=== PATIENT | female | born 1930 | race Caucasian/White ===

== ENCOUNTER 2018-09-08 03:20 | Inpatient (IN) ==
[2018-09-08] MEDS ORDERED: Naloxone 0.4 MG/ML INJ IVP PRN (09:13)
[2018-09-08] MEDS ORDERED: *HR* OxyCODONE Immed Rel 5 MG TABLET PO PRN (09:13)
[2018-09-08] MEDS ORDERED: Acetaminophen 325 MG TABLET PO PRN (09:13)
[2018-09-08] MEDS ORDERED: *HR* HYDROcodone/Acet 5/325 mg TABLET PO PRN (09:13)
[2018-09-08] MEDS ORDERED: Ipratropium/Albuterol Neb 3 ML IH PRN (09:16)
--- NOTE | 2018-09-08 09:44 | Internal Med History&Physical ---
Date of Encounter: 09/08/18 Time of Encounter: 08:00 Internal Medicine - H&P: HPI Chief complaint: Shortness of breath Admitted From: Emergency Dept History of present illness: Ms. Palumbo is a 88 year old female with history of colon cancer status post partial hemicolectomy, follicular lymphoma, hypothyroidism, presented to the outside hospital ED with 2 day history of shows of breath. Associated with orthopnea and progressive leg swelling. Denies any chest pain, nausea/vomiting , diaphoresis, or epigastric pain. Has had chronic diarrhea post partial hemicolectomy. No fever/chills, cough, sputum production, or sick contacts. No abdominal pain or dysuria. Does not have any history of CAD or cardiomyopathy. Nonsmoker but has extensive secondary exposure to tobacco. At the outside hospital ED she was afebrile and hemodynamically stable. Saturating well on 2 L of oxygen. Initial workup revealed hypoxia with PaO2 of 57 and elevated BNP of 35,000. No leukocytosis, negative troponin, EKG showing normal sinus rhythm. I do not have a report of the chest x-ray from [facility]. She was given 1 dose of IV Lasix, Solu-Medrol, DuoNeb, and transferred to [facility] for further management. Past Med Surg Social Fam HX - Past Medical History Medical history: cancer, thyroid disease Psychiatric history: no psych history - Past Surgical History Surgical History: colectomy - Social History Smoking Status: 2nd Hand Smoke Exposure Smokeless Tobacco Status: No Alcohol use: rarely Drug use: none - Family History Mother History Unknown: Yes Living Status: Father History Unknown: Yes Living Status: Internal Medicine - H&P: Meds Acetaminophen [Tylenol] 500 mg PO Q6HR PRN 12/31/17 [History] Calcium Citrate/Vitamin D3 [Calcium Cit 315-Vit D3 250 Tab] 1 each PO DAILY 12/17 [History] Ibuprofen [Advil] 200 mg PO Q8HR PRN 12/31/17 [History] Iron PO DAILY 12/31/17 [History] Levothyroxine [Synthroid] 88 mcg PO 0630 12/31/17 [History] Loperamide [Imodium] 4 mg PO TID #120 capsule 12/31/17 [Rx] Metoprolol [Lopressor] 50 mg PO BID 12/31/17 [History] Multivitamin [One Daily Essential] 1 each PO DAILY 12/31/17 [History] Prolia (For Outpatient Infusion) SQ 12/31/17 [History] Diphenoxylate/Atropine [Lomotil 2.5 mg/0.025 mg] 1 tab PO 03/11/18 [History] 3 Allergy/AdvReac Type Severity Reaction Status Date / Time Penicillins [PCN] AdvReac Rash Verified 03/11/18 13:08 All Systems PM: A 10-system review of systems was performed and is negative for pertinent findings except as documented above in the HPI. - Constitutional Vitals: Temp Pulse Resp BP Pulse Ox 98.0 F 80 18 152/84 95 09/08/18 08:12 09/08/18 08:12 09/08/18 08:12 09/08/18 08:12 09/08/18 08:12 Exam: General: Alert and oriented, not in acute distress. HEENT:EOM, pupils equal, round and reactive. Cardiovascular:Normal S1 & S2, No JVD. Pulse regular. Ejection systolic murmur over aortic area Lungs: Bibasilar Rales, no rhonchi/wheezes. Minimal pitting edema on both ankles Abdomen:Soft, non-tender, no rigidity. Extremities:No deformity or swelling Neurological:Normal cognition and motor skills. Non-focal Skin:Normal color, no rash, no lesions. Pulses:Carotid and radial pulses normal +2. Rest of the physical exam is non contributory - Assessment and plan (1) Acute decompensated heart failure Current Visit: Yes Status: Acute Assessment and plan: Presented with progressive dyspnea, orthopnea, and leg swelling in the setting of elevated BNP > 35,000 Symptomatically improvement after IV Lasix No history of CAD or cardiomyopathy, no symptoms of angina Troponin negative, EKG normal sinus rhythm. Trend troponin to rule out ACS Continue IV lasix 40mg BID Strict I's and O's, fluid restrict 1.5 L a day Echocardiogram (2) Hypothyroidism Current Visit: No Status: Chronic Assessment and plan: Resume home meds when reconciled Qualifiers: Hypothyroidism type: unspecified Qualified Code(s): E03.9 - Hypothyroidism , unspecified (3) History of colon cancer, stage II Current Visit: No Status: Chronic Assessment and plan: Status post partial hemicolectomy, complicated by chronic diarrhea continue home meds when reconciled (4) Follicular lymphoma Current Visit: No Status: Chronic Assessment and plan: Mass in the mesentery status post resection with reanastomosis Follow-up outpatient Qualifiers: Follicular lymphoma type: unspecified follicular type Lymphoma site: intra- abdominal nodes Qualified Code(s): C82.93 - Follicular lymphoma, unspecified, intra-abdominal lymph nodes (5) DVT prophylaxis Current Visit: Yes Status: Acute Assessment and plan: Subcutaneous heparin - Time Spent With Patient Total time spent is greater than 50% in coordination of care (as documented) at patient's floor/unit and/or counseling patient:
[2018-09-08] MEDS: *HR* Heparin 5,000 UNIT/ML VIAL SQ SCH (17:15)
[2018-09-08] MEDS: Furosemide 40 MG/4 ML VIAL IVP SCH (19:35)
[2018-09-08] MEDS: Melatonin 3 MG TABLET PO PRN (22:36)
[2018-09-08 23:41] LABS: Albumin 3.6 g/dL (3.5-5.7); Albumin/Globulin Ratio 1.1 (1.1-2.2); Bilirubin,Total 0.5 mg/dL (0.3-1.0); Calcium 8.5 mg/dL (8.6-10.3); Globulin 3.3 g/dL (2.4-3.5); Potassium 3.9 mEq/L (3.5-5.1); Total Protein 6.9 g/dL (6.4-8.9)
[2018-09-08 23:45] LABS: Basophils % 0.1 %; Hematocrit 42.5 % (35.3-44.9); Hemoglobin 13.7 g/dL (11.5-15.4); Immature Granulocytes % 1.2 % (0-4); Lymphocytes # 1.3 K/mcL (0.6-4.6); Mean Corpuscular HGB Conc 32.2 g/dL (31.6-35.5); Mean Corpuscular Hemoglobin 31.6 pg (28.0-33.3); Mean Corpuscular Volume 97.9 fL (83.0-100.0); Mean Platelet Volume 9.8 fL (9.4-12.4); Monocytes # 0.7 K/mcL (0.0-1.3); Monocytes % 8.2 %; Neutrophils # 6.6 K/mcL (1.6-8.9); Platelet Count 237 K/mcL (140-400); Red Blood Count 4.34 M/mcL (3.82-4.97); Red Cell Distribution Width 14.9 % (11.5-14.5); Segmented Neutrophils % 75.5 %
[2018-09-09 05:16] LABS: Hematocrit 40.1 % (35.3-44.9); Hemoglobin 13.2 g/dL (11.5-15.4); Mean Corpuscular HGB Conc 32.9 g/dL (31.6-35.5); Mean Corpuscular Hemoglobin 31.8 pg (28.0-33.3); Mean Corpuscular Volume 96.6 fL (83.0-100.0); Mean Platelet Volume 9.6 fL (9.4-12.4); Platelet Count 219 K/mcL (140-400); Red Blood Count 4.15 M/mcL (3.82-4.97); Red Cell Distribution Width 15.1 % (11.5-14.5)
[2018-09-09 05:38] LABS: Calcium 8.2 mg/dL (8.6-10.3); Magnesium 1.6 mg/dL (1.6-2.6); Potassium 3.7 mEq/L (3.5-5.1)
[2018-09-09] MEDS: *HR* Heparin 5,000 UNIT/ML VIAL SQ SCH ×2 (05:43→18:13)
[2018-09-09] MEDS: Multivit/Ca/Min/Fe/FA 1 TAB TABLET PO SCH (08:24)
[2018-09-09] MEDS: Furosemide 40 MG/4 ML VIAL IVP SCH (10:28)
[2018-09-09 10:59] LABS: Albumin 3.3 g/dL (3.5-5.7); Bilirubin,Direct 0.1 mg/dL (0.0-0.2); Bilirubin,Indirect 0.5 mg/dL (0.0-1.2); Bilirubin,Total 0.6 mg/dL (0.3-1.0); Globulin 3.4 g/dL (2.4-3.5); Total Protein 6.7 g/dL (6.4-8.9)
--- NOTE | 2018-09-09 11:40 | Internal Med Progress Note ---
Hospitalist Progress Note - Encounter Date of Encounter: 09/09/18 Time of Encounter: 11:40 - Subjective Interval History: Pt states she is breathing better. She reports voiding ok. She denies chest pain. She denies palpitations. She denies fever, chills, N/V or abdominal pain. SHe does report chronic diarrhea. - Exam Vitals: Temp Pulse Resp BP Pulse Ox 97.8 F 69 18 138/75 100 09/09/18 11:03 09/09/18 11:03 09/09/18 11:03 09/09/18 11:03 09/09/18 11:03 Exam: Exam: General: Alert and oriented, not in acute distress. HEENT:EOM, pupils equal, round and reactive. Cardiovascular:Normal S1 & S2, No JVD. Pulse regular. Ejection systolic murmur over aortic area Lungs: Bibasilar Rales, no rhonchi/wheezes. Minimal pitting edema on both ankles Abdomen:Soft, non-tender, no rigidity. Extremities:No deformity or swelling Neurological:Normal cognition and motor skills. Non-focal Skin:Normal color, no rash, no lesions. Pulses:Carotid and radial pulses normal +2. Rest of the physical exam is non contributory - Assessment and Plan (1) Acute decompensated heart failure Current Visit: Yes Status: Acute Assessment and Plan: Presented with progressive dyspnea, orthopnea, and leg swelling in the setting of elevated BNP > 35,000 Symptomatically improving on IV Lasix. Will consider switching to PO Lasix at discharge. No history of CAD or cardiomyopathy, no symptoms of angina Troponin negative, EKG normal sinus rhythm. Trend troponin to rule out ACS. IV lasix 40mg BID Strict I's and O's, fluid restrict 1.5 L a day Echo abnormal and results below. Cardiology consulted to see and awaiting their note. Echocardiogram EV/EV echocardiogram Impressions: LVEF 30-35%. Normal LV chamber size. Mild concentric left ventricular hypertrophy. Mild left ventricular diastolic dysfunction. Severe global left ventricular systolic dysfunction. Atypical septal motion consistent with bundle branch block. Normal right ventricular structure and function. Moderate aortic regurgitation. Mild mitral regurgitation. Mild tricuspid regurgitation. No pulmonary hypertension. Pleural effusion. (2) Follicular lymphoma Current Visit: No Status: Chronic Assessment and Plan: Mass in the mesentery status post resection with re-anastomosis Follow-up outpatient (3) History of colon cancer, stage II Current Visit: No Status: Chronic Assessment and Plan: Status post partial hemicolectomy, complicated by chronic diarrhea continue home meds when reconciled (4) Hypothyroidism Current Visit: No Status: Chronic Assessment and Plan: Levothyroxine DVT Prophylaxis: Heparin - Summary of Assessment and Plan Summary of Assessment and Plan: Ms. Palumbo is a 88 year old female with history of colon cancer status post partial hemicolectomy, follicular lymphoma, hypothyroidism, presented to the outside hospital ED with 2 day history of shows of breath. Associated with orthopnea and progressive leg swelling. Denies any chest pain, nausea/vomiting , diaphoresis, or epigastric pain. Has had chronic diarrhea post partial hemicolectomy. No fever/chills, cough, sputum production, or sick contacts. No abdominal pain or dysuria. Does not have any history of CAD or cardiomyopathy. Nonsmoker but has extensive secondary exposure to tobacco. At the outside hospital ED she was afebrile and hemodynamically stable. Saturating well on 2 L of oxygen. Initial workup revealed hypoxia with PaO2 of 57 and elevated BNP of 35,000. No leukocytosis, negative troponin, EKG showing normal sinus rhythm. I do not have a report of the chest x-ray from [facility]. She was given 1 dose of IV Lasix, Solu-Medrol, DuoNeb, and transferred to [facility] for further management. - Time Spent with Patient Total time spent is greater than 50% in coordination of care (as documented) at patient's floor/unit and/or counseling patient: less than 15 minutes Plan of Care Discussed with: patient Internal Medicine: Result - Labs CBC & Chem 7: 09/09/18 04:58 09/09/18 04:58 Labs: Short CBC 09/08/18 09/09/18 Range/Units 23:06 04:58 WBC 8.7 8.7 (4.3-11.1) K/mcL Hgb 13.7 13.2 (11.5-15.4) g/dL Hct 42.5 40.1 (35.3-44.9) % Plt Count 237 219 (140-400) K/mcL Neutrophils # 6.6 (1.6-8.9) K/mcL BMP 09/08/18 09/09/18 23:06 04:58 Sodium 139 142 Potassium 3.9 3.7 Chloride 104 106 Carbon Dioxide 24 26 BUN 34 H 33 H Creatinine 1.16 1.09 Glucose 118 H 105 Calcium 8.5 L 8.2 L Liver Function 09/08/18 09/09/18 Range/Units 23:06 04:58 Total Bilirubin 0.5 0.6 (0.3-1.0) mg/dL Direct Bilirubin 0.1 (0.0-0.2) mg/dL AST 48 H 42 H (13-39) Units/L ALT 74 H 66 H (7-52) Units/L Alkaline Phosphatase 235 H 199 H (34-104) Units/L Albumin 3.6 3.3 L (3.5-5.7) g/dL - Impressions Impressions Echocardiogram 09/08/18 09:16 Impressions: LVEF 30-35%. Normal LV chamber size. Mild concentric left ventricular hypertrophy. Mild left ventricular diastolic dysfunction. Severe global left ventricular systolic dysfunction. Atypical septal motion consistent with bundle branch block. Normal right ventricular structure and function. Moderate aortic regurgitation. Mild mitral regurgitation. Mild tricuspid regurgitation. No pulmonary hypertension. Pleural effusion. Hip X-Ray 09/08/18 10:46 IMPRESSION: 1. Anatomic alignment and satisfactory appearance status post ORIF of the left femoral neck. 2. No bony or joint abnormalities seen in the left hip. 3. Degenerative changes in the lower lumbar spine. D/ / 09/08/2018 16:09:24 Mati Leigh MD / [email or web address] Interpreting Provider: Mati Leigh MD Consult Discharge Plan - Plan Referrals: Nicki Driscoll [Primary Care Provider] - (2) Follicular lymphoma Qualifiers: Follicular lymphoma type: unspecified follicular type Lymphoma site: intra- abdominal nodes Qualified Code(s): C82.93 - Follicular lymphoma, unspecified, intra-abdominal lymph nodes (4) Hypothyroidism Qualifiers: Hypothyroidism type: unspecified Qualified Code(s): E03.9 - Hypothyroidism, unspecified
--- NOTE | 2018-09-09 12:42 | Cardiology Consult Note ---
Date of Encounter: 09/09/18 Time of Encounter: 09:30 Assessment and Plan (1) Systolic CHF with reduced left ventricular function, NYHA class 3 Current Visit: Yes Status: Acute Per cardiology: -Admitted with sudden onset of shortness of breath. -CHest x-ray with pulmonary edema. -BNP 1100s. -Was started on IV lasix, currently net negative 1140ml. -Euvolemic on exam, lung sounds clear. -Strict i/os, fluid restriction, daily weight. -Will switch lasix to oral. -CHF education reviewed at length with patient. (2) Cardiomyopathy Current Visit: Yes Status: Acute Per cardiology: -Apparent new onset of systolic heart failure, TTE with LVEF 30-35%, global hypokinesis, midl concentric LVH, moderate AR, mild MR, mild TR. -Discussed potential LHC with patient for ischemic evaluation, however patient declines at this time. Patient prefers medical management. -On lopressor. -Will switch lopressor to toprol. -Will start gurpreet inhibitor. -Switching lasix to oral. -Will repeat TTE in 3 months after medical therapy. -CHF education reviewed at length with patient. Qualifiers: Cardiomyopathy type: unspecified Qualified Code(s): I42.9 - Cardiomyopathy , unspecified Discussion w patient/family: The assessment and plan as outlined above was discussed with the patient who expressed understanding and agreement. All questions were answered. Thank you for involving us in the care of your patient. Please call with any questions. Discussed and reviewed with . History of Present Illness Consult date: 09/08/18 Requesting physician: Mathew Ochoa Consult reason: reduced LVEF Chief complaint: shortness of breath History of present illness: Ms. Palumbo is a 88 year old female with a relevant past medical history of colon cancer, thyroid disease who presented to [facility] with complaints of difficulty in breathing. Patient denies chest pain. Patient denies weight gain, or edema. Today, patient states her breathing is back to her baseline. Past Med Surg Social Fam HX - Past Medical History Attestation: Yes The following information was validated with the patient. Source: patient, old records reviewed Medical history: cancer, thyroid disease Psychiatric history: no psych history - Past Surgical History Surgical History: colectomy - Social History Smoking Status: 2nd Hand Smoke Exposure Smokeless Tobacco Status: No Alcohol use: rarely Drug use: none - Family History Mother History Unknown: Yes Living Status: Father History Unknown: Yes Living Status: Medications and Allergies Calcium Citrate/Vitamin D3 [Calcium Cit 315-Vit D3 250 Tab] 1 each PO DAILY 12/17 [History] Ibuprofen [Advil] 200 mg PO Q8HR PRN 12/31/17 [History] Iron 65 mg PO DAILY 12/31/17 [History] Levothyroxine [Synthroid] 88 mcg PO 0630 12/31/17 [History] Loperamide [Imodium] 4 mg PO TID #120 capsule 12/31/17 [Rx] Metoprolol [Lopressor] 50 mg PO BID 12/31/17 [History] Multivitamin [One Daily Essential] 1 each PO DAILY 12/31/17 [History] Diphenoxylate/Atropine [Lomotil 2.5 mg/0.025 mg] 1 - 2 tab PO Q6HR PRN 03/11/18 [History] Acetaminophen/Aspirin/Caffeine [Excedrin EX] 1 each PO Q6HR PRN 09/08/18 [ History] Tramadol HCl [Ultram] 100 mg PO QID PRN 09/08/18 [History] 3 Allergy/AdvReac Type Severity Reaction Status Date / Time Penicillins [PCN] AdvReac Rash Verified 03/11/18 13:08 All Systems Review: The remainder of the systems were reviewed and are negative - Cardiovascular Cardiovascular: as per HPI, dyspnea at rest, dyspnea on exertion Physical Examination Vital Signs, Last 4 Hours Temp Pulse Resp BP Pulse Ox 09/09/18 11:03 97.8 F 69 18 138/75 100 General: Conversant, No Apparent Distress HEENT: Atraumatic, Normocephaly, Mucus Membranes Moist Neck: No JVD, Normal carotid pulses Cardiac: Reg Rate and Rhythm, Normal S1 and S2, No Murmur Lungs: Normal Breath Sounds, No Wheeze, Rales, Rhonchi Neuro: Alert and responsive, No focal deficits noted Abdomen: Soft, Non-Tender Skin: No rashes noted on visualized skin Musculoskeletal: No Chest Wall Tenderness Extremities: No Clubbing, No Cyanosis, No Edema, Normal Pulses Results 09/09/18 04:58 09/09/18 04:58 Lab Results Impressions Echocardiogram 09/08/18 09:16 Impressions: LVEF 30-35%. Normal LV chamber size. Mild concentric left ventricular hypertrophy. Mild left ventricular diastolic dysfunction. Severe global left ventricular systolic dysfunction. Atypical septal motion consistent with bundle branch block. Normal right ventricular structure and function. Moderate aortic regurgitation. Mild mitral regurgitation. Mild tricuspid regurgitation. No pulmonary hypertension. Pleural effusion. Hip X-Ray 09/08/18 10:46 IMPRESSION: 1. Anatomic alignment and satisfactory appearance status post ORIF of the left femoral neck. 2. No bony or joint abnormalities seen in the left hip. 3. Degenerative changes in the lower lumbar spine. D/ / 09/08/2018 16:09:24 Mati Leigh MD / [email or web address] Interpreting Provider: Mati Leigh MD Active Medications Acetaminophen (Tylenol) 650 mg PO Q6HR PRN PRN Reason: Mild Pain/Fever Stop: 03/10/19 09:14 Last Admin: 09/09/18 08:23 Dose: 650 mg Hydrocodone Bitart/Acetaminophen ([place] 5-325 Mg) 1 tab PO Q6HR PRN PRN Reason: Moderate Pain Stop: 03/10/19 09:14 Albuterol/Ipratropium (Duoneb) 3 ml IH G8AATAN PRN PRN Reason: Shortness Of Breath/Wheezing Stop: 03/10/19 09:17 Calcium Carbonate (Tums) 500 mg PO DAILY [facility] Stop: 03/11/19 09:01 Last Admin: 09/09/18 08:23 Dose: 500 mg Ferrous Sulfate (Ferrous Sulfate) 325 mg PO DAILY [facility] Stop: 03/11/19 09:01 Last Admin: 09/09/18 08:23 Dose: 325 mg Furosemide (Lasix) 20 mg PO BIDDIURETIC [facility] Stop: 03/11/19 17:01 Heparin Sodium (Porcine) (Heparin) 5,000 unit SQ Q12HCO [facility] Stop: 03/10/19 18:01 Last Admin: 09/09/18 05:43 Dose: 5,000 unit Levothyroxine Sodium (Synthroid) 88 mcg PO 0630 [facility] Stop: 03/11/19 06:31 Last Admin: 09/09/18 05:43 Dose: 88 mcg Lisinopril (Zestril) 2.5 mg PO DAILY [facility] PRN Reason: Protocol Stop: 03/12/19 09:01 Melatonin (Melatonin) 3 mg PO HS PRN PRN Reason: Insomnia Stop: 03/10/19 22:11 Last Admin: 09/08/18 22:36 Dose: 3 mg Metoprolol Succinate (Toprol Xl) 50 mg PO DAILY [facility] Stop: 03/12/19 09:01 Metoprolol Tartrate (Lopressor) 50 mg PO BID [facility] Stop: 09/09/18 23:45 Last Admin: 09/09/18 08:24 Dose: 50 mg Multivitamins/Calcium (Thera M Plus) 1 tab PO DAILY [facility] Stop: 03/11/19 09:01 Last Admin: 09/09/18 08:24 Dose: 1 tab Naloxone HCl (Narcan) 0.4 mg IVP Q2MIN PRN PRN Reason: SEE COMMENTS Stop: 03/10/19 09:14 Oxycodone HCl (Roxicodone) 10 mg PO Q6HR PRN PRN Reason: Severe Pain Stop: 03/10/19 09:14 Laboratory Tests 09/08/18 09/09/18 09/09/18 09:39 04:58 04:58 Hgb 13.2 Creatinine 1.09 Troponin I < 0.03 B-Natriuretic Peptide 09/09/18 04:58 Hgb Creatinine Troponin I B-Natriuretic Peptide 1120 H - Imaging and Cardiology Chest Xray: report reviewed Echo: report reviewed - EKG Interpretation EKG results cardiology: personally reviewed (No ECG [facility] noted.), other ( Telemetry reviewed with average HR previous 12 hours noted to be 89, SR. PVCs and PACs noted.) Consult Discharge Plan - Plan Referrals: Nicki Driscoll [Primary Care Provider] -
[2018-09-09 17:31] LABS: Hepatitis B Surface Antigen Nonreactive (Nonreactive)
[2018-09-09] MEDS: Aspirin Enteric Coated 81 MG Tablet PO SCH (18:13)
[2018-09-09] MEDS: Furosemide 20 MG TABLET PO SCH (18:13)
[2018-09-09] MEDS: Melatonin 3 MG TABLET PO PRN (20:02)
[2018-09-10 01:09] LABS: Hepatitis A Antibody IgM Nonreactive (Nonreactive); Hepatitis B Core IgM Nonreactive (Nonreactive); Hepatitis C Virus Antibody Nonreactive (Nonreactive)
[2018-09-10 04:40] LABS: Hematocrit 44.8 % (35.3-44.9); Hemoglobin 14.4 g/dL (11.5-15.4); Mean Corpuscular HGB Conc 32.1 g/dL (31.6-35.5); Mean Corpuscular Hemoglobin 31.5 pg (28.0-33.3); Platelet Count 244 K/mcL (140-400); Red Blood Count 4.57 M/mcL (3.82-4.97); Red Cell Distribution Width 14.8 % (11.5-14.5); Segmented Neutrophils % 71.4 %
[2018-09-10 04:41] LABS: Basophils % 0.2 %; Eosinophils % 0.1 %; Immature Granulocytes % 0.2 % (0-4); Lymphocytes # 1.7 K/mcL (0.6-4.6); Lymphocytes % 20.1 %; Monocytes # 0.7 K/mcL (0.0-1.3)
[2018-09-10 04:59] LABS: Albumin 3.6 g/dL (3.5-5.7); Albumin/Globulin Ratio 1.1 (1.1-2.2); Bilirubin,Total 0.6 mg/dL (0.3-1.0); Calcium 8.7 mg/dL (8.6-10.3); Globulin 3.4 g/dL (2.4-3.5); Potassium 3.1 mEq/L (3.5-5.1)
[2018-09-10] MEDS: *HR* Heparin 5,000 UNIT/ML VIAL SQ SCH (06:00)
[2018-09-10] MEDS: Furosemide 20 MG TABLET PO SCH (08:57)
[2018-09-10] MEDS: Multivit/Ca/Min/Fe/FA 1 TAB TABLET PO SCH (08:57)
[2018-09-10] MEDS: Aspirin Enteric Coated 81 MG Tablet PO SCH (08:57)
[2018-09-10] MEDS ORDERED: Metoprolol XL (24 HR) Succ 50 MG TAB.ER.24H PO SCH (09:00)
[2018-09-10 12:09] VITALS: BP 128/78
--- NOTE | 2018-09-10 13:15 | Discharge Summary ---
- NOTES TO OUTPATIENT PROVIDER Notes to Outpatient Provider: To have repeat TTE in 3 months. Orders not resulted at time of discharge: Pending orders 09/09/18 14:18 ECG 12 lead ECG [ECG] Routine 09/11/18 04:00 CBC [Complete Blood Count] [HEME] AM 0400 CMP [Comprehensive Metabolic Panel] AM 0400 09/12/18 04:00 CBC [Complete Blood Count] [HEME] AM 0400 CMP [Comprehensive Metabolic Panel] AM 0400 Date of Encounter: 09/10/18 Time of Encounter: 12:13 - Discharge Diagnosis (1) Acute decompensated heart failure Priority: Primary Status: Acute (2) Follicular lymphoma Priority: Secondary Status: Chronic Qualifiers: Follicular lymphoma type: unspecified follicular type Lymphoma site: intra- abdominal nodes Qualified Code(s): C82.93 - Follicular lymphoma, unspecified, intra-abdominal lymph nodes (3) Hypothyroidism Priority: Secondary Status: Chronic Qualifiers: Hypothyroidism type: unspecified Qualified Code(s): E03.9 - Hypothyroidism , unspecified (4) History of colon cancer, stage II Priority: Secondary Status: Chronic Hospital course: Ms. Palumbo is a 88 year old female with past medical history of colon cancer status post hemicolectomy, follicular lymphoma, hypothyroidism came with progressive shortness of breath. BNP was 1100s and chest x-ray showed pulmonary edema. Patient received treatment for acute decompensated heart failure with IV Lasix. Echo showed EF of 30-35, global hypokinesis, mild LVH, mild diastolic dysfunction, atypical septal wall motion consistent with bundle branch block, moderate aortic regurgitation, mild MR and TR. Cardiology was consulted and option for LX she was discussed however patient declined at this time. Patient was started on medical management for systolic CHF. Patient appears euvolemic and her breathing improved. Patient would be discharged on oral Lasix, lisinopril and metoprolol succinate. Patient would follow up with PCP closely. Would need a repeat echo in 3 months to evaluate for ICD. Discharge discussed with: patient, family, nurse - Time Spent with Patient Total time spent providing and/or coordinating discharge services: Greater than 30 minutes (40 mins) - Discharge Medications Prescriptions: Aspirin Enteric Coated [Aspirin EC] 81 mg PO DAILY 30 Days #30 tablet. Furosemide [Lasix] 20 mg PO BIDDIURETIC 30 Days #60 tablet Lisinopril [Zestril] 2.5 mg PO DAILY 30 Days #30 tablet Metoprolol XL (24 HR) Succ [Toprol Xl] 50 mg PO DAILY 30 Days #30 tab.er.24h Home Medications: Calcium Citrate/Vitamin D3 [Calcium Cit 315-Vit D3 250 Tab] 1 each PO DAILY 12/17 [History] Ferrous Sulfate [Iron] 325 mg PO DAILY 12/31/17 [History] Ibuprofen [Advil] 200 mg PO Q8HR PRN 12/31/17 [History] Levothyroxine [Synthroid] 88 mcg PO 0630 12/31/17 [History] Loperamide [Imodium] 4 mg PO TID #120 capsule 12/31/17 [Rx] Multivitamin [One Daily Essential] 1 each PO DAILY 12/31/17 [History] Diphenoxylate/Atropine [Lomotil 2.5 mg/0.025 mg] 1 - 2 tab PO Q6HR PRN 03/11/18 [History] Acetaminophen/Aspirin/Caffeine [Excedrin EX] 1 each PO Q6HR PRN 09/08/18 [ History] Tramadol HCl [Ultram] 100 mg PO QID PRN 09/08/18 [History] Aspirin Enteric Coated [Aspirin EC] 81 mg PO DAILY 30 Days #30 tablet.dr [Rx] Furosemide [Lasix] 20 mg PO BIDDIURETIC 30 Days #60 tablet 09/10/18 [Rx] Lisinopril [Zestril] 2.5 mg PO DAILY 30 Days #30 tablet 09/10/18 [Rx] Metoprolol XL (24 HR) Succ [Toprol Xl] 50 mg PO DAILY 30 Days #30 tab.er.24h 11/16 [Rx] Allergies/Adverse Reactions: 3 Allergy/AdvReac Type Severity Reaction Status Date / Time Penicillins [PCN] AdvReac Rash Verified 03/11/18 13:08 Date of admission: 09/09/18 15:45 Primary care physician: Nicki Driscoll Consults: 09/08/18 10:28 Consult to Manager Site [CONS] Routine Reason for SW Consult: Discharge planning, recently discharged from [facility] 09/08/18 11:21 Consult to Nurse Navigator [CONS] Routine Comment: CHF 09/08/18 18:10 Consult to Cardiology [CONS] Routine Comment: Consulting Provider: Cardiology [place] Reason for Consult: New-onset systolic heart failure Call Completed: Yes Discharging clinician: Nain Vera - Constitutional Vitals: Temp Pulse Resp BP Pulse Ox 97.9 F 82 16 128/78 94 09/10/18 12:08 09/10/18 12:08 09/10/18 12:08 09/10/18 12:08 09/10/18 12:08 Exam: General: In no acute distress. Conversant. Thinly build. Respiratory exam: CTAB. no accessory muscle use, rales, rhonchi, wheezes Cardiovascular exam: RRR, +S1, +S2. no murmur, gallop, rubs. GI/Abdominal exam: Non-tender, Non-distended, normal bowel sounds, soft, no peritoneal signs. Extremities exam: full ROM, no pedal edema, warm, pulses palpable in b/l lower extremities. no calf tenderness Neurological exam: CN II-XII intact, AO X3, no focal deficits. no pronater drift , facial droop, speech deficit Skin exam: No skin rash, ulcer, purpura or ecchymosis. - Patient Status Disposition: Home, Self-Care Condition: Fair - Discharge Instructions Follow Up With: Nicki Driscoll [Primary Care Provider] - 09/17/18 9:20 am (Appointment made with Fabiana Garza) - Diet and Activity Activity: resume usual activities as tolerated
--- NOTE | 2018-09-10 13:58 | Physician Discharge Referral ---
- Diagnosis (1) Acute decompensated heart failure Status: Acute (2) Follicular lymphoma Status: Chronic (3) Hypothyroidism Status: Chronic (4) History of colon cancer, stage II Status: Chronic - Respiratory Orders Smoking Cessation: Smoking cessation has been advised. For more information, call the [place] Tobacco Quit Line at 3-905-CQTJ-NOW. - Services Needed Following services are medically necessary services: Nursing - Transfer Medications Prescriptions: Aspirin Enteric Coated [Aspirin EC] 81 mg PO DAILY 30 Days #30 tablet. Furosemide [Lasix] 20 mg PO BIDDIURETIC 30 Days #60 tablet Lisinopril [Zestril] 2.5 mg PO DAILY 30 Days #30 tablet Metoprolol XL (24 HR) Succ [Toprol Xl] 50 mg PO DAILY 30 Days #30 tab.er.24h Home Medications: Calcium Citrate/Vitamin D3 [Calcium Cit 315-Vit D3 250 Tab] 1 each PO DAILY 12/17 [History] Ferrous Sulfate [Iron] 325 mg PO DAILY 12/31/17 [History] Ibuprofen [Advil] 200 mg PO Q8HR PRN 12/31/17 [History] Levothyroxine [Synthroid] 88 mcg PO 0630 12/31/17 [History] Loperamide [Imodium] 4 mg PO TID #120 capsule 12/31/17 [Rx] Multivitamin [One Daily Essential] 1 each PO DAILY 12/31/17 [History] Diphenoxylate/Atropine [Lomotil 2.5 mg/0.025 mg] 1 - 2 tab PO Q6HR PRN 03/11/18 [History] Acetaminophen/Aspirin/Caffeine [Excedrin EX] 1 each PO Q6HR PRN 09/08/18 [ History] Tramadol HCl [Ultram] 100 mg PO QID PRN 09/08/18 [History] Aspirin Enteric Coated [Aspirin EC] 81 mg PO DAILY 30 Days #30 tablet. [Rx] Furosemide [Lasix] 20 mg PO BIDDIURETIC 30 Days #60 tablet 09/10/18 [Rx] Lisinopril [Zestril] 2.5 mg PO DAILY 30 Days #30 tablet 09/10/18 [Rx] Metoprolol XL (24 HR) Succ [Toprol Xl] 50 mg PO DAILY 30 Days #30 tab.er.24h 11/16 [Rx] Allergies/Adverse Reactions: 3 Allergy/AdvReac Type Severity Reaction Status Date / Time Penicillins [PCN] AdvReac Rash Verified 03/11/18 13:08 Certification: Further, I certify that my clinical findings support that this patient is homebound (i.e. absences from home require considerable and taxing effort and are for medical reasons or [employer] or infrequently or short duration when for other reasons) because: Homebound Reason: Patient requires assistance of a person or device to safely leave home Attestation: My signature below is to certify that this patient is under my care and that I, or nurse practitioner, or a physician's imaging assistant working with me, has a face-to -face encounter with this patient.
== END 2018-09-10 14:30 | disposition home or self-care (01) | DRG 292 ==
LOC: 3BNU → SUATTDRO 06:49
PROVIDERS: ADMIT Internal Medicine; ATTEND Internal Medicine